=== PATIENT | female | born 1990 | race Caucasian/White ===

== ENCOUNTER 2022-12-16 19:04 | Emergency (ER) | payer MEDICAID, OTHER ==
[~2022-12-16] VITALS: Ht 167.6 cm; Wt 81.6 kg
[2022-12-16 19:24] VITALS: BP 138/82
== END 2022-12-17 01:04 | disposition left against medical advice (07) ==
LOC: EDBD 19:04 → ER 19:04
DX: M25.561 Pain in right knee (principal); Z53.21 Procedure and treatment not carried out due to patient leaving prior to being seen by health care provider
CPT/HCPCS: 73562